=== PATIENT | male | born 1985 | race African-American/Black ===

== ENCOUNTER 2025-03-24 11:07 | Inpatient (IN) | payer MEDICAID ==
[~2025-03-24] VITALS: Ht 180.3 cm; Wt 72.6 kg
[2025-03-24 11:10] VITALS: O2SAT 99
[2025-03-24 11:53] LABS: HEMATOCRIT. 45.2 % (42.0-52.0); HEMOGLOBIN. 15.1 g/dL (14.0-18.0); MEAN PLATELET VOLUME 10.0 fl (7.4-10.4); PLATELET 188 x1000/uL (130-400); RED BLOOD CELL COUNT 4.75 mill/uL (4.7-6.1); RED CELL DISTRIBUTION WIDTH 13.1 % (11.6-14.6)
[2025-03-24 12:09] LABS: CREATININE 1.1 mg/dL (0.6-1.3); UREA NITROGEN BLOOD 9 mg/dL (9-23)
[2025-03-24 12:10] LABS: ASPARTATE AMINOTRANSFERASE 32 IU/L (<34)
[2025-03-24 12:11] LABS: BILIRUBIN DIRECT 0.5 mg/dL (<=3.0); BILIRUBIN TOTAL 1.6 mg/dL (0.1-1.0); PROTEIN TOTAL 8.5 g/dL (6.0-8.3)
[2025-03-24] MEDS: MORPHINE SULFATE 4 MG/ML INJ (FOR IV/IM USE) IV ONE (12:22)
[2025-03-24] MEDS: ONDANSETRON HCL 4MG/2ML INJ IV ONE (12:22)
[2025-03-24 13:08] LABS: LYMPHOCYTES % MANUAL 11.0 % (20.0-50.0); MONOCYTES % MANUAL 8.0 % (2.0-8.0); NEUTROPHILS % MANUAL 81.0 % (45.0-75.0); PLATELET ESTIMATE NORMAL
[2025-03-24] MEDS: KETOROLAC 30MG/ML VIAL IV ONE (13:38)
[2025-03-24 14:27] VITALS: BP 100/54; PULSE 69; RESP 18; TEMP 36.9184
[2025-03-24 15:14] LABS: CLARITY URINE CLEAR (CLEAR); GLUCOSE URINE NEGATIVE (NEGATIVE); KETONES URINE 3+ (NEGATIVE); LEUKOCYTE ESTERASE URINE NEGATIVE (NEGATIVE); NITRITE URINE NEGATIVE (NEGATIVE); OCCULT BLOOD URINE NEGATIVE (NEGATIVE); PH URINE 6.0 (4.5-8.0); PROTEIN URINE 1+ (NEGATIVE); SPECIFIC GRAVITY URINE 1.011 (1.005-1.030); UROBILINOGEN URINE 1.0 E.U./dL (0.2-1.0)
[2025-03-24 15:49] LABS: COLOR URINE STRAW (YELLOW)
[2025-03-24 15:51] LABS: BACTERIA URINE NONE SEEN; RBC URINE NONE SEEN /hpf (0-2); SQUAMOUS EPITHELIAL CELL URINE RARE /lpf (RARE/1+); WBC URINE NONE SEEN /hpf (0-2)
[2025-03-24 16:00] VITALS: BP 93/46; PULSE 64; RESP 19; TEMP 36.4; O2SAT 98
[2025-03-24] MEDS ORDERED: CLONIDINE 0.1MG TABLET PO PRN (16:00)
[2025-03-24] MEDS ORDERED: ACETAMINOPHEN 325MG TABLET PO PRN (16:00)
[2025-03-24] MEDS ORDERED: DOCUSATE SODIUM 100MG CAPSULE PO PRN (16:00)
[2025-03-24] MEDS ORDERED: IPRATROPIUM/ALBUTEROL 0.5-3(2.5)MG/3ML NEB HHN PRN (16:00)
[2025-03-24] MEDS ORDERED: ONDANSETRON HCL 4MG/2ML INJ IV PRN (16:00)
[2025-03-24] MEDS ORDERED: MAGNESIUM/ALUMINUM HYDROXIDE/SIMETHICONE 30ML UDC PO PRN (16:15)
[2025-03-24] MEDS: FAMOTIDINE 20MG/2ML VIAL IV SCH (17:21)
[2025-03-24] MEDS: ENOXAPARIN 40MG/0.4ML SYR SUBCUT SCH (17:22)
[2025-03-24 20:00] VITALS: BP 103/54; PULSE 74; RESP 20; TEMP 36.9; O2SAT 98
[2025-03-24] MEDS: TRAMADOL 50MG TABLET PO PRN (21:19)
[2025-03-25] MEDS: ACETAMINOPHEN 325MG TABLET PO PRN (00:41)
[2025-03-25 01:22] LABS: *AMPHETAMINES SCREEN URINE NEGATIVE (NEGATIVE); *BARBITURATES SCREEN URINE NEGATIVE (NEGATIVE); *BENZODIAZEPINES SCREEN URINE NEGATIVE (NEGATIVE); *COCAINE SCREEN URINE NEGATIVE (NEGATIVE); METHADONE URINE SCREEN NEGATIVE (NEGATIVE)
[2025-03-25 01:23] LABS: CANNABINOID URINE SCREEN PRESUMPTIVE POSITIVE (NEGATIVE); ECSTASY MDMA SCREEN URINE NEGATIVE (NEGATIVE); OPIATES URINE SCREEN PRESUMPTIVE POSITIVE (NEGATIVE); PHENCYCLIDINE URINE SCREEN NEGATIVE (NEGATIVE)
[2025-03-25 08:00] VITALS: BP 103/67; PULSE 60; RESP 16; TEMP 36.1; O2SAT 100
[2025-03-25 12:00] VITALS: BP 108/69; PULSE 61; RESP 16; TEMP 36.3; O2SAT 100
[2025-03-25 14:09] LABS: CREATININE 1.0 mg/dL (0.6-1.3); UREA NITROGEN BLOOD 7 mg/dL (9-23)
[2025-03-25] MEDS: POTASSIUM CHLORIDE 20MEQ TABLET SR PO SCH (14:43)
[2025-03-25 16:00] VITALS: BP 112/70; PULSE 67; RESP 16; TEMP 36.1; O2SAT 100
[2025-03-25 18:50] VITALS: BP 112/70; PULSE 67; RESP 16; TEMP 97
[2025-03-25 20:00] VITALS: BP 107/60; PULSE 72; RESP 18; TEMP 36.6; O2SAT 100
== END 2025-03-25 20:00 | disposition home or self-care (01) | DRG 249 ==
LOC: ER 11:07 → 6EST 13:12 → EDBEDREQTM 13:14 → EDBEDREQ 13:14 → ENRESERV 13:27
PROVIDERS: ADMIT Internal Medicine; ATTEND Internal Medicine
DX: R11.2 Nausea with vomiting, unspecified (principal); D72.829 Elevated white blood cell count, unspecified; R10.31 Right lower quadrant pain; F12.90 Cannabis use, unspecified, uncomplicated; Z79.899 Other long term (current) drug therapy
CPT/HCPCS: 36415; 74176; 76700; 80048; 80076; 80305; 80320; 81003; 82550; 83605; 84145; 85025; 96374; 96375; 99285; A4606; J1308; J1650; J1885; J2270; J2405; G0480